=== PATIENT | male | born 1985 ===

== ENCOUNTER 2018-09-10 14:09 | Emergency (ER) | payer SELFPAY ==
[~2018-09-10] VITALS: Ht 175.3 cm; Wt 93.0 kg
[2018-09-10 14:23] VITALS: BP 163/92
--- NOTE | 2018-09-10 14:29 | EKG ---
[facility] [address] [place] [address] Test Date: 2018-09-10 Test Time: 14:18:07 Pat Name: HANNA GOMEZ Department: Room: Gender: M Personal Care Home Administrator: : 1985 Requested By: TITO AMATO Order Number: [id number] Reading MD: Measurements Intervals [place] Rate: 103 P: 36 TX: 138 QRS: 33 QRSD: 88 T: 13 QT: 328 QTc: 432 Interpretive Statements SINUS TACHYCARDIA QRS(T) CONTOUR ABNORMALITY CONSIDER ANTEROSEPTAL MYOCARDIAL DAMAGE POSSIBLY ABNORMAL ECG RI6.01 No previous ECG available for comparison
[2018-09-10] MEDS ORDERED: IV NORMAL SALINE 1000ML BAG 1,000 ML IV ONE ×3 (14:30→15:30)
[2018-09-10 14:43] LABS: BASO # 0.1 x10^3/uL (0.0-0.2); BASO % 1 % (0-3); EOS # 0.1 x10^3/uL (0.0-0.7); EOS % 1 % (0-3); HEMATOCRIT 50.8 % (39.0-53.0); HEMOGLOBIN 17.9 g/dL (13.0-17.5); LYMPH # 2.3 x10^3/uL (1.0-4.8); LYMPH % 24 % (24-48); MEAN CORPUSCULAR HEMOGLOBIN 32 pg (25-35); MEAN CORPUSCULAR HGB CONC 35 g/dL (31-37); MEAN CORPUSCULAR VOLUME 91 fL (79-100); MONO # 0.5 x10^3/uL (0.0-1.1); MONO % 5 % (0-9); NEUT # 6.6 x10^3uL (1.8-7.7); NEUT % 69 % (31-73); PLATELET COUNT 317 x10^3/uL (140-400); RED BLOOD COUNT 5.61 x10^6/uL (4.30-5.70); RED CELL DISTRIBUTION WIDTH 13.4 % (11.5-14.5); WHITE BLOOD COUNT 9.6 x10^3/uL (4.0-11.0)
[2018-09-10 14:45] LABS: CALCIUM 9.4 mg/dL (8.5-10.1); CREATININE 1.3 mg/dL (0.7-1.3); GFR 63.2; POTASSIUM 3.7 mmol/L (3.5-5.1)
[2018-09-10 15:17] LABS: BARBITURATES NEG (NEG); BENZODIAZEPINES NEG (NEG); CANNABINOIDS POS (NEG); COCAINE NEG (NEG); METHADONE NEG (NEG); OPIATES NEG (NEG); PHENCYCLIDINE NEG (NEG)
[2018-09-10 15:18] LABS: AMPHETAMINE/METHAMPHETAMINE POS (NEG)
--- NOTE | 2018-09-10 15:46 | PHYS DOC ---
Past Medical History Past Medical History: Other Additional Past Medical Histor: MS Past Surgical History: No Surgical History Alcohol Use: Heavy Drug Use: Other Social History Narrative: CBD Adult General Chief Complaint Chief Complaint: RAPID HEART RATE HPI HPI Patient is a 33 year old male who presents with rapid heart rate. Patient states he awoke this morning and felt what he described to be generally weird. He had some paresthesias in the extremities. He also felt lightheaded and had some dizziness. He had some palpitations that were particularly worse with position changes. He did not have chest pain or shortness of breath. He did not have nausea or vomiting. He denies that he has had symptoms similar to this in the past. The patient does have a history of multiple sclerosis which he is not currently receiving medications for. Patient also states he drank a large amount of vodka last night prior to going to bed. He also endorses marijuana use but denies other illicit drug use. Review of Systems Review of Systems Constitutional: Denies fever or chills Eyes: Denies change in visual acuity HENT: Denies nasal congestion Respiratory: Denies cough Cardiovascular: No additional information not addressed in HPI GI: Denies abdominal pain : Denies dysuria Musculoskeletal: Denies back pain Integument: Denies rash or skin lesions Neurologic: Denies headache, focal weakness or sensory changes All other systems were reviewed and found to be within normal limits, except as documented in this note. Current Medications Current Medications Current Medications Medications (Trade) Dose Ordered Sig/Sharif Start Time Stop Time Status Last Admin Dose Admin Sodium Chloride 1,000 ml @ 1,000 mls/hr 1X ONCE 09/10/18 15:30 09/10/18 16:29 Allergies Allergies Allergies Coded Allergies Type Severity Reaction Last Updated Verified No Known Drug Allergies 09/10/18 No Physical Exam Physical Exam Constitutional: Well developed, well nourished, no acute distress, non-toxic appearance HENT: Normocephalic, atraumatic, bilateral external ears normal, oropharynx moist Eyes: PERRLA, EOMI, conjunctiva normal Neck: Normal range of motion, no tenderness Cardiovascular:Heart rate regular rhythm, no murmur Lungs & Thorax: Bilateral breath sounds clear to auscultation Abdomen: Bowel sounds normal, soft, no tenderness Skin: Warm, dry, no erythema, no rash Back: No tenderness Extremities: No edema Neurologic: Alert and oriented X 3, normal motor function, normal sensory function Psychologic: Affect normal, judgement normal, mood normal Current Patient Data Vital Signs Vital Signs Date Time Temp Pulse Resp B/P (MAP) Pulse Ox O2 Delivery O2 Flow Rate FiO2 09/10/18 14:23 98.0 105 16 163/92 (115) 100 Room Air 98.0 Lab Values Laboratory Tests Test 09/10/18 14:25 09/10/18 15:00 White Blood Count 9.6 x10^3/uL (4.0-11.0) Red Blood Count 5.61 x10^6/uL (4.30-5.70) Hemoglobin 17.9 g/dL (13.0-17.5) H Hematocrit 50.8 % (39.0-53.0) Mean Corpuscular Volume 91 fL (79-100) Mean Corpuscular Hemoglobin 32 pg (25-35) Mean Corpuscular Hemoglobin Concent 35 g/dL (31-37) Red Cell Distribution Width 13.4 % (11.5-14.5) Platelet Count 317 x10^3/uL (140-400) Neutrophils (%) (Auto) 69 % (31-73) Lymphocytes (%) (Auto) 24 % (24-48) Monocytes (%) (Auto) 5 % (0-9) Eosinophils (%) (Auto) 1 % (0-3) Basophils (%) (Auto) 1 % (0-3) Neutrophils # (Auto) 6.6 x10^3uL (1.8-7.7) Lymphocytes # (Auto) 2.3 x10^3/uL (1.0-4.8) Monocytes # (Auto) 0.5 x10^3/uL (0.0-1.1) Eosinophils # (Auto) 0.1 x10^3/uL (0.0-0.7) Basophils # (Auto) 0.1 x10^3/uL (0.0-0.2) Sodium Level 140 mmol/L (136-145) Potassium Level 3.7 mmol/L (3.5-5.1) Chloride Level 101 mmol/L (98-107) Carbon Dioxide Level 31 mmol/L (21-32) Anion Gap 8 (6-14) Blood Urea Nitrogen 11 mg/dL (8-26) Creatinine 1.3 mg/dL (0.7-1.3) Estimated GFR (Cockcroft-Gault) 63.2 Glucose Level 104 mg/dL (70-99) H Calcium Level 9.4 mg/dL (8.5-10.1) Troponin I Quantitative < 0.017 ng/mL (0.000-0.055) Thyroid Stimulating Hormone (TSH) 4.580 uIU/mL (0.358-3.74) H Free Thyroxine 1.07 ng/dL (0.76-1.46) Urine Opiates Screen Neg (NEG) Urine Methadone Screen Neg (NEG) Urine Barbiturates Neg (NEG) Urine Phencyclidine Screen Neg (NEG) Urine Amphetamine/Methamphetamine Pos (NEG) Urine Benzodiazepines Screen Neg (NEG) Urine Cocaine Screen Neg (NEG) Urine Cannabinoids Screen Pos (NEG) Urine Ethyl Alcohol Neg (NEG) Laboratory Tests 09/10/18 14:25 Laboratory Tests 09/10/18 14:25 EKG EKG No STEMI Interpretation Time: 14:20 Radiology/Procedures Radiology/Procedures [] Course & Med Decision Making Course & Med Decision Making Pertinent Labs and Imaging studies reviewed. (See chart for details) Patient was evaluated in the emergency department for feeling generally weak and dizzy in the setting of having drank a large amount of alcohol the night before. He was noted to have mild tachycardia on arrival to the ER. He was given 2 L normal saline and his tachycardia did improve to a normal rate. Lab workup was unremarkable. Troponin was not elevated. EKG was sinus rhythm with no ST changes concerning for ischemia. TSH was mildly elevated but free T4 was normal range. The patient did have a drug screen that was notably positive for methamphetamine. Patient was discharged home. He was feeling improved after IV fluids. He was recommended to follow-up with his primary care doctor or return to the ER for any new or worsening symptoms. Dragon Disclaimer Dragon Disclaimer This electronic medical record was generated, in whole or in part, using a voice recognition dictation system. Departure Departure Disposition: 01 HOME, SELF-CARE Condition: GOOD Referrals: NO PCP (PCP) TITO AMATO DO Sep 10, 2018 15:46
== END 2018-09-10 16:00 | disposition home or self-care (01) ==
LOC: ER 14:09
DX: R00.0 Tachycardia, unspecified (principal); R42 Dizziness and giddiness; F15.90 Other stimulant use, unspecified, uncomplicated; G35 Multiple sclerosis; F10.20 Alcohol dependence, uncomplicated; Y90.9 Presence of alcohol in blood, level not specified
CPT/HCPCS: 36415; 80048; 80307; 84439; 84443; 84484; 85025; 93005; 96360; 96361; 99284; J7030

== ENCOUNTER 2018-12-14 13:21 | Emergency (ER) | payer SELFPAY ==
[~2018-12-14] VITALS: Ht 175.3 cm; Wt 99.8 kg
[2018-12-14 13:35] VITALS: BP 150/85
[2018-12-14] MEDS ORDERED: predniSONE 10 MG TABLET PO ONE (14:00)
[2018-12-14] MEDS ORDERED: IPRATRPIUM/ALBUTEROL 0.5/2.5MG 3 ML NEBU. NEB ONE (14:00)
--- NOTE | 2018-12-14 14:33 | RAD ---
CHEST PA LATERAL History: cough and congestion x 1 month, chest pain x today Comparison: Two-view chest August 12, 2010. Findings: The cardiomediastinal silhouette is normal. Pulmonary vasculature is normal. The lungs are clear. No pleural effusion or pneumothorax is seen. There is no acute bone abnormality. IMPRESSION: No acute cardiopulmonary process. Electronically signed by: Myron Gordon MD (12/14/2018 2:30 PM) [id number]
[2018-12-14] MEDS ORDERED: PRED50TA PO (15:16)
[2018-12-14] MEDS ORDERED: DOXY100C14 PO (15:16)
--- NOTE | 2018-12-14 15:16 | PHYS DOC ---
Past Medical History Past Medical History: Other Additional Past Medical Histor: MS Past Surgical History: No Surgical History Alcohol Use: Occasionally Drug Use: None Adult General Chief Complaint Chief Complaint: COUGH HPI HPI 33-year-old male presents to ER for complaints of something cough and chest congestion for the past month. Patient reports he has had intermittent nonproductive cough and his ears have felt clogged. He reports his chest feels tight with deep breathes. He reports he has felt feverish intermittent denies checking his temp. He denies fatigue, N/VD, abd pain, urinary sxs, palpitations/ CP, or swelling. He reports he is a daily cigarette smoker. He reports he has been taking OTC meds such as sudafed, mucinex, and afrin with some relief in sxs. He denies recent travel or exposure to others w/similar sxs. Review of Systems Review of Systems Constitutional: Reports feels feverish at times. Denies fatigue Eyes: Denies change in visual acuity, redness, or eye pain [] HENT: Denies nasal congestion or sore throat. Reports bilat. ears feel "clogged " denies drainage Reports he can hear from both ears. Denies tinnitus Respiratory: Reports intermittent nonprod. cough with tightness/congestion in his chest Cardiovascular: No additional information not addressed in HPI [] GI: Denies abdominal pain, nausea, vomiting, bloody stools or diarrhea [] : Denies dysuria or hematuria [] Musculoskeletal: Denies back/neck pain or joint pain [] Integument: Denies rash, swelling or skin lesions [] Neurologic: Denies headache, focal weakness or sensory changes. Denies dizziness All other systems were reviewed and found to be within normal limits, except as documented in this note. Current Medications Current Medications Current Medications Medications (Trade) Dose Ordered Sig/Sharif Start Time Stop Time Status Last Admin Dose Admin Albuterol/ Ipratropium (Duoneb) 3 ml 1X ONCE 12/14/18 14:00 12/14/18 14:01 DC 12/14/18 14:08 3 ML Prednisone (Prednisone) 50 mg 1X ONCE 12/14/18 14:00 12/14/18 14:01 DC 12/14/18 14:06 50 MG Allergies Allergies Allergies Coded Allergies Type Severity Reaction Last Updated Verified No Known Drug Allergies 09/10/18 No Physical Exam Physical Exam Constitutional: Well developed, well nourished, no acute distress, non-toxic appearance. Speech clear HENT: Normocephalic, atraumatic, bilateral ears normal- no bulging at TM, erythema, or purulent drainage, oropharynx moist, no oral exudates, nose normal - no facial swelling/sinus tenderness. [] Eyes: Pupils equal, conjunctiva normal, no discharge. [] Neck: Normal range of motion, no tenderness- no nuchal rigidity, supple, no stridor/gross adenopathy. Trachea midline Cardiovascular: Heart rate regular rhythm, no murmur [] Lungs & Thorax: Upper expiratory wheezing w/decreased air movement in all lung hensley- less air movement in bases. Resp. equal/nonlabored. Speaking in full sentences. Skin: Warm, dry, no erythema, no rash. [] Back: No tenderness, no CVA tenderness. [] Extremities: No tenderness, no cyanosis, no clubbing, ROM intact, no edema. [] Neurologic: Alert and oriented X 3, normal motor function, normal sensory function, no focal deficits noted. [] Psychologic: Affect normal, judgement normal, mood normal. [] Current Patient Data Vital Signs Vital Signs Date Time Temp Pulse Resp B/P (MAP) Pulse Ox O2 Delivery O2 Flow Rate FiO2 12/14/18 14:10 Room Air 12/14/18 13:35 97.8 92 16 150/85 (106) 97 97.8 EKG EKG [] Radiology/Procedures Radiology/Procedures PROCEDURE: CHEST PA & LATERAL CHEST PA LATERAL History: cough and congestion x 1 month, chest pain x today Comparison: Two-view chest August 12, 2010. Findings: The cardiomediastinal silhouette is normal. Pulmonary vasculature is normal. The lungs are clear. No pleural effusion or pneumothorax is seen. There is no acute bone abnormality. IMPRESSION: No acute cardiopulmonary process. Electronically signed by: Myron Negrete MD (12/14/2018 2:30 PM) [id number] DICTATED and SIGNED BY: MYRON NEGRETE MD DATE: 12/14/18 1430 Course & Med Decision Making Course & Med Decision Making Pertinent Imaging studies reviewed. (See chart for details) 1510: On re-eval following Duoneb and prednisone he has had improved air movement throughout all lung hensley. He does continue to have slight expiratory wheeze left upper lobe. Discussed chest xray with no acute findings. Discussed with hx of smoking and wheezing possible bronchitis/URI. Will Rx Doxycycline with d/c and Rx for prednisone with initial dose in ER. Smoking cessation was discussed. Pt encouraged to increase fld intake. Pt is nontoxic in appearance and speaking in full sentences during d/c discussion and in no visible distress - denying any SOA/CP. He reports he is able to take deeper breath without the tightness in his chest. Education provided on s&s to return to ER for and d/c instructions were discussed. Will provide community resources for clinic/ physician f/u. Pedro Luis Disclaimer Pedro Luis Disclaimer This electronic medical record was generated, in whole or in part, using a voice recognition dictation system. Departure Departure Impression: Primary Impression: Bronchitis Additional Impression: Cough Disposition: HOME, SELF-CARE Condition: STABLE Referrals: NO PCP (PCP) Patient Instructions: Bronchitis, Cough, Adult, Smoking Cessation Additional Instructions: Avoid smoking. Drink plenty of fluids. If symptoms persist follow-up with your primary care physician for reevaluation and further care. Start your prednisone prescription on 12/15/18 as initial dose was given in the ER. Scripts Doxycycline Monohydrate (DOXYCYCLINE MONOHYDRATE) 100 Mg Capsule 1 CAP PO BID, #14 CAP 0 Refills Prov: KATHRYN MONTEMAYOR APRN 12/14/18 Prednisone (PREDNISONE) 50 Mg Tablet 1 TAB PO DAILY, #4 TAB Start on 12/15/18 Prov: KATHRYN MONTEMAYOR APRN 12/14/18 Problem Qualifiers KATHRYN MONTEMAYOR APRN Dec 14, 2018 15:16
== END 2018-12-14 15:40 | disposition home or self-care (01) ==
LOC: ER 13:21
DX: J40 Bronchitis, not specified as acute or chronic (principal)
CPT/HCPCS: 71046; 94640; 99283; J7512; J7620

== ENCOUNTER 2021-03-18 13:52 | Emergency (ER) | payer BC ==
[~2021-03-18] VITALS: Ht 175.3 cm; Wt 99.2 kg
[~2021-03-18 13:52] MED LIST: DOXY-181 PO; PRED50TA PO
[2021-03-18 15:54] VITALS: BP 147/100
== END 2021-03-18 19:14 | disposition left against medical advice (07) ==
LOC: ER 13:52
DX: M79.602 Pain in left arm (principal); Z53.21 Procedure and treatment not carried out due to patient leaving prior to being seen by health care provider